=== PATIENT | male | born 1950 | race Caucasian/White ===

== ENCOUNTER 2018-05-26 13:13 | Outpatient (CLI) | payer MEDICARE, BC ==
--- NOTE | 2018-05-26 16:04 | MRI ---
MRI LUMBAR SPINE WITH AND WITHOUT CONTRAST: Date: 05/26/18 COMPARISON: 11/20/16. HISTORY: Worsening back pain with bilateral lower extremity radiculopathy. TECHNIQUE: Multiplanar, multisequence MR imaging of the lumbar spine is provided with and without contrast. FINDINGS: The sagittal STIR imaging demonstrates edematous degenerative end plate change at the lumbosacral yumi ction. No additional focal area of osseous marrow edema is seen. Mild edema noted in the region of th e pedicle on the right at L5. No significant anterolisthesis or retrolisthesis is present within the lumbar spine. On the basis of five lumbar-type vertebral bodies, the conus medullaris terminates at the T12-L1 leve l. T12-L1: There is disc space narrowing and disc desiccation with minimal disc bulge. No significant c entral canal stenosis. Bilateral facet hypertrophy and hypertrophy of ligamentum flavum noted with no significant central canal or neural foraminal stenosis. L1-2: Disc space narrowing, disc desiccation, and disc osteophyte are present with no central canal stenosis. Bilateral facet hypertrophy and hypertrophy of the ligamentum flavum noted with mild left-s ided neural foraminal stenosis. L2-3: Bilateral facet hypertrophy. Disc space narrowing and disc desiccation with mild disc bulge. S mall foraminal disc protrusion on the left. No significant central canal stenosis. Mild bilateral eula ral foraminal stenosis, left greater than right. L3-4: Disc space narrowing and disc desiccation with mild disc bulge. No central canal stenosis. Pat ient appears status post bilateral laminectomy. Bilateral facet hypertrophy noted with no significant neural foraminal stenosis. Vacuum disc formation present. L4-5: Disc space narrowing, disc desiccation, and mild disc osteophyte complex present. Bilateral la minectomy changes. No central canal stenosis. There is moderate/severe neural foraminal stenosis on t he right secondary to disc bulge, lateral osteophyte formation, and facet hypertrophy. This has worse danni since the prior exam. No significant left neural foraminal stenosis. L5-S1: Disc space narrowing and degenerative end plate change with disc bulge present. No central ca nal stenosis. Bilateral facet hypertrophy noted, right greater than left. There is severe neural foraminal stenosis on the right, stable. There is moderate neural foraminal stenosis on the left, slightly worsened. The imaged retroperitoneal structures demonstrate no acute findings. The postcontrast imaging demonstrates mild enhancement of the anterior epidural space at L5-S1, right greater than left, likely on the basis of scar. There is enhancement involving the paraspinal muscul ature posteriorly to the left of midline at L5-S1, also suggesting scar. No enhancement of the nerve roots of the cauda equina noted. No abnormal enhancement of the imaged osseous structures or intervertebral discs noted. IMPRESSION: Multilevel degenerative disc disease noted within the lumbar spine, which includes significant multil evel neural foraminal stenosis, most prominent on the right at L4-5 and L5-S1. POS: ELIZABETH
== END 2018-05-26 13:14 | disposition home or self-care (01) ==
LOC: BICMRI 13:13
PROVIDERS: ATTEND Internal Medicine
DX: M48.061 Spinal stenosis, lumbar region without neurogenic claudication (principal); M51.36 Other intervertebral disc degeneration, lumbar region; M51.37 Other intervertebral disc degeneration, lumbosacral region; M51.17 Intervertebral disc disorders with radiculopathy, lumbosacral region; M51.16 Intervertebral disc disorders with radiculopathy, lumbar region
CPT/HCPCS: 72158

== ENCOUNTER 2019-05-10 11:07 | Emergency (ER) | payer MEDICARE, BC ==
--- NOTE | 2019-05-10 12:05 | RAD ---
Radiograph right knee 4 views: DATE: 05/10/2019 HISTORY: 68-year-old male with acute traumatic right knee pain due to fall. FINDINGS: No fracture is identified. Suprapatellar small to moderate-sized joint effusion or hemarthrosis. Join t spaces are maintained. Small patellofemoral compartment osteophytes. No moderate sized or large osteophytes at medial and lateral compartments. Chondrocalcinosis at medial and lateral compartments. IMPRESSION: 1. No fracture. 2. Small joint effusion versus small hemarthrosis. 3. Chondrocalcinosis suggestive of CPPD. 4. Mild osteoarthrosis of patellofemoral compartment.
== END 2019-05-10 13:55 | disposition short-term general hospital (02) ==
LOC: ERS 11:07
DX: S83.91XA Sprain of unspecified site of right knee, initial encounter (principal); I25.10 Atherosclerotic heart disease of native coronary artery without angina pectoris; K21.9 Gastro-esophageal reflux disease without esophagitis; I10 Essential (primary) hypertension; F41.9 Anxiety disorder, unspecified; W54.1XXA Struck by dog, initial encounter

== ENCOUNTER 2019-12-31 09:29 | Outpatient (CLI) | payer MEDICARE, BC ==
[2019-12-31 10:46] LABS: Estimated GFR-MDRD - POC Greater than 90
--- NOTE | 2019-12-31 11:37 | MRI ---
Exam: Lumbar spine MRI with and without contrast HISTORY: Lumbar radiculopathy. Low back pain radiating down the right leg for years. Patient is now h aving left hip and left leg pain with radiation to left foot. COMPARISON: 05/26/2018, 11/20/2016. FINDINGS: Stable straightening of the lumbar lordosis. Stable T1 marrow signal intensity of the lumbar vertebra . No fracture. Stable type I and type II Modic changes at the L5-S1 disc space. Stable Schmorl's nodes along the inferior endplate of L4, inferior and superior endplate of L5, superior endplate of S 1. No significant STIR hyperintensity to suggest vertebral body edema or ligamentous injury. Postcontrast images do not demonstrate any abnormal enhancement in the vertebral bodies. No abnormal enhancement within the thecal sac including the cauda equina and conus medullaris. Conus medullaris terminates at the mid L1 level. Appropriate signal intensity of the visualized solid organs and paraspinal muscles. T12-L1: Stable disc hydration. Broad-based disc bulge mildly deforms the thecal sac. Mild central can al stenosis. Mild bilateral neural foraminal narrowing. L1-L2: Stable disc desiccation and mild loss of disc space height. Broad-based disc bulge, ligamentum flavum thickening and facet hypertrophy result in mild central canal stenosis. Mild bilateral neural foraminal narrowing. L2-L3: Disc desiccation with severe loss of disc space height, unchanged. Posterior laminectomy defec t. No significant central canal stenosis. Mild right and moderate left neural foraminal narrowing. L3-L4: Disc desiccation with mild loss of disc space height. Broad-based disc bulge abuts the thecal sac. No significant central canal stenosis. Posterior laminectomy defect with minimal scar tissue at the operative site. Right neural foramen is patent. Mild left neural foraminal narrowing. L4-L5: Broad-based disc bulge abuts the thecal sac. Stable disc desiccation. No significant central c anal stenosis. Laminectomy defect is identified. No significant scar tissue at the operative site. However, there is enhancing scar tissue in the right subarticular zone which partially encompasses th e traversing right L5 nerve root. Moderate to severe right and moderate left neural foraminal narrowing. L5-S1: Disc desiccation with moderate to severe loss of disc space height. Broad-based disc bulge abu ts the thecal sac. Laminectomy defect is identified. There is no significant stenosis upon the thecal sac. There is disc material in the left and right subarticular zone. Disc material partially o bscures the traversing right S1 nerve root. There is contact upon the traversing left S1 nerve root without significant obscuration. Postcontrast images do demonstrate a component of enhancement along the right subarticular margin of the disc suggesting scar tissue which also abuts the traversing right S1 nerve root. Moderate to severe bilateral neural foraminal narrowing. IMPRESSION: 1. Extensive decompressive laminectomy defects involving the lumbar spine as described above. 2. Multilevel degenerative changes of the lumbar spine as detailed above with varying degrees of cent ral canal stenosis and neural foraminal narrowing. 3. Redemonstration of enhancing scar tissue predominantly along the right subarticular region, partia lly encompassing the traversing right S1 nerve root. Transcribed Date/Time: 12/31/2019 12:02 PM
[2019-12-31] MEDS ORDERED: Magnevist 469MG/ML 20 ML VIAL ONE (14:16)
== END 2019-12-31 09:30 | disposition home or self-care (01) ==
LOC: BICMRI 09:29
PROVIDERS: ATTEND Psychiatry & Neurology Neurology
DX: M47.26 Other spondylosis with radiculopathy, lumbar region (principal); M48.061 Spinal stenosis, lumbar region without neurogenic claudication; Z98.890 Other specified postprocedural states
CPT/HCPCS: 72158; 82565; A9579